=== PATIENT | female | born 1995 | race Caucasian/White ===

== ENCOUNTER 2016-03-23 14:27 | Emergency (ER) | payer OTHER ==
[2016-03-23 14:40] VITALS: BMI 43.5
[2016-03-23] MEDS ORDERED: SODIUM CHLORIDE 1,000 ML IV STA (15:41)
[2016-03-23] MEDS ORDERED: KETOROLAC TROMETHAMINE 30 MG/1 ML VIAL IVPUSH ONE (15:43)
[2016-03-23] MEDS ORDERED: KETOROLAC TROMETHAMINE 30 MG/1 ML VIAL ONE (15:45)
--- NOTE | 2016-03-23 15:50 | PDOC ---
Attending Attestation - Resident Resident Name: Ricco Feng - ED Attending Attestation I have performed the following: I have examined & evaluated the patient, The case was reviewed & discussed with the resident, I agree w/resident's findings & plan - HPI HPI: 03/23/16 15:47 21-year-old female with a negative past medical history She's had a few months of generalized "not feeling well", and for the past 2 weeks, she's had episodes of nausea vomiting, and some diarrhea This is associated with chest pain, crampy abdominal pain, fever, chills, myalgias, runny nose, and generalized malaise She denies any blood in the vomitus or diarrhea - Physicial Exam PE: 03/23/16 15:48 Physical exam Last Vital Signs Temp Pulse Resp BP Pulse Ox 99.6 F 113 H 20 139/108 97 03/23/16 14:33 03/23/16 14:33 03/23/16 14:33 03/23/16 14:33 03/23/16 14:33 GENERAL: The patient is awake, alert, and fully oriented, and in no apparent distress. HEAD: Normal with no signs of trauma. EYES: Sclera anicteric ENT: Throat is minimally erythematous NECK: Normal range of motion, supple LUNGS: Breath sounds equal, clear to auscultation bilaterally. No wheezes, and no crackles. HEART: Regular rate and rhythm, normal S1 and S2 without murmur, rub or gallop. ABDOMEN: Soft, nontender, normoactive bowel sounds. No guarding, no rebound. No masses appreciated. CHEST WALL: There is tenderness on the costochondral junctions to palpation, which reproduces the chest pain EXTREMITIES: Normal range of motion, no edema. No clubbing or cyanosis. No cords, erythema, or tenderness. NEUROLOGICAL: Cranial nerves II through XII grossly intact. Normal speech, normal gait. PSYCH: Normal mood, normal affect. SKIN: Warm, Dry, normal turgor, no rashes or lesions noted. - Medical Decision Making 03/23/16 15:49 Influenza-like illness, with associated gastroenteritis-type symptoms Will hydrate, check labwork, chest x-ray, and TSH, recheck blood pressure Patient is extremely anxious at this time 03/23/16 16:42 EKG Normal sinus rhythm 99, 0 axis Normal AV and IV conduction time Normal QTC Baseline artifact NSST-T's No change from prior EKH of 10/03/12 03/23/16 17:03 Laboratory Results - last 24 hr 03/23/16 03/23/16 03/23/16 16:00 16:00 16:00 WBC 13.6 H D RBC 4.63 Hgb 12.1 Hct 38.5 MCV 83.2 MCHC 31.4 L RDW 12.8 Plt Count 388 MPV 8.1 Neutrophils % 81.0 D Lymphocytes % 14.4 D Monocytes % 3.8 Eosinophils % 0.4 Basophils % 0.4 Sodium 142 Potassium 4.0 Chloride 106 Carbon Dioxide 27 Anion Gap 9 BUN 11 Creatinine 0.6 Creat Clearance w eGFR > 60 Random Glucose 99 Calcium 9.0 Total Bilirubin 0.6 AST 15 ALT 25 Alkaline Phosphatase 68 Creatine Kinase 48 Troponin I < 0.02 Total Protein 7.0 Albumin 3.5 Urine Color Urine Appearance Urine pH Ur Specific Branch Urine Protein Urine Glucose (UA) Urine Ketones Urine Blood Urine Nitrite Urine Bilirubin Urine Urobilinogen Ur Leukocyte Esterase 03/23/16 16:45 WBC RBC Hgb Hct MCV MCHC RDW Plt Count MPV Neutrophils % Lymphocytes % Monocytes % Eosinophils % Basophils % Sodium Potassium Chloride Carbon Dioxide Anion Gap BUN Creatinine Creat Clearance w eGFR Random Glucose Calcium Total Bilirubin AST ALT Alkaline Phosphatase Creatine Kinase Troponin I Total Protein Albumin Urine Color Yellow Urine Appearance Clear Urine pH 7.0 Ur Specific Branch 1.021 Urine Protein Negative Urine Glucose (UA) Negative Urine Ketones Negative Urine Blood Negative Urine Nitrite Negative Urine Bilirubin Negative Urine Urobilinogen 2.0 e.u/dl H Ur Leukocyte Esterase Negative CXR - NAD TSH - 2.25 Influenza A and B - neg Vital Signs (72 hours) 03/23/16 03/23/16 03/23/16 14:33 15:55 18:56 Temperature 99.6 F 98.6 F Pulse Rate 113 H Pulse Rate [ 78 Right] Respiratory 20 20 Rate Blood Pressure 139/108 Blood Pressure 118/68 [Right Arm] O2 Sat by Pulse 97 100 100 Oximetry (%) Feeling better after IV hydration and meds Impression - influenza like illness, atypical CP, gastroenteritis, anxiety Discharge Disposition - Diagnosis Influenza-like illness, Gastroenteritis, Atypical chest pain, Anxiety - Discharge Dispostion Disposition: HOME Condition at time of disposition: Improved - Prescriptions Prescriptions: Ibuprofen [Motrin -] 600 mg PO PRN PRN #21 tablet MDD 3 pills max PRN Reason: Pain Ondansetron [Zofran -] 4 mg PO DAILY #14 tablet MDD 2 tabs - Referrals Referrals: Arpit Steele MD [Staff Physician] - 1 week - Patient Instructions Additional Instructions: Followup with Dr Franklin for outpatient checkups & long-term management. - Post Discharge Activity
--- NOTE | 2016-03-23 16:13 | PDOC ---
History of Present Illness - General History Source: Patient Exam Limitations: No Limitations - History of Present Illness Initial Comments: 03/23/16 16:08 21 year old female with no PMH presents to ED with generalized chest pain & lethargy. States since March 08, she has had on and off bouts of sternal chest pain, not radiating to either side. She describes associated nausea and abdominal pain for the last 2 weeks as well. Several URI symptoms are also present including SOB, runny nose & sinus pain/headaches. In general, has not felt well for 2 months. Has not had her flu shot this year and has not seen a PCP in >1 year due to insurance issues. States she plans to start seeing a PCP as she just got insurance. Patient is very anxious and relates her symptoms exacerbating during periods of high stress. <Ricco Feng - Last Filed: 03/23/16 18:47> <Dalila Jacobs - Last Filed: 03/25/16 13:21> - General Chief Complaint: Pain Stated Complaint: CHEST PAIN, SOB, VOMITING, FEVER Time Seen by Provider: 03/23/16 15:14 Past History - Travel Traveled outside of the country in the last 30 days: No Close contact w/someone who was outside of country & ill: No - Past Medical History Other medical history: NONE - Surgical History Other Surgical History: Tonsillectomy - Family Disease History Family Disease History: Diabetes: Mother (Colon cancer in maternal uncle), Heart Disease: Mother, CA: Mother - Reproductive History LMP comment: LMP Early february, has been irregular for last year LMP Normal: No - Immunization History Immunization Up to Date: Yes - Psycho/Social/Smoking Cessation Hx Anxiety: No Suicidal Ideation: No Smoking Status: No Smoking History: Never smoked Have you smoked in the past 12 months: No Number of Cigarettes Smoked Daily: 0 Information on smoking cessation initiated: No Hx Alcohol Use: No Drug/Substance Use Hx: No Substance Use Type: None <Ricco Feng - Last Filed: 03/23/16 18:47> <Dalila Jacobs - Last Filed: 03/25/16 13:21> - Past Medical History Allergies/Adverse Reactions: Allergies Allergy/AdvReac Type Severity Reaction Status Date / Time No Known Allergies Allergy Verified 03/23/16 14:39 Home Medications: Ambulatory Orders Ibuprofen [Motrin -] 600 mg PO PRN PRN #21 tablet MDD 3 pills max 03/23/16 Ondansetron [Zofran -] 4 mg PO DAILY #14 tablet MDD 2 tabs 03/23/16 Review of Systems - Review of Systems Able to Perform ROS?: Yes Is the patient limited Luxembourger proficient: No Constitutional: Yes: Chills, Diaphoresis, Fever, Weakness HEENTM: Yes: Nose Congestion Respiratory: Yes: Cough, Shortness of Breath Cardiac (ROS): Yes: Chest Pain, Lightheadedness ABD/GI: Yes: Abdominal cramping Neurological: Yes: Headache Psychiatric: Yes: Anxiety <Ricco Feng - Last Filed: 03/23/16 18:47> *Physical Exam - Vital Signs Last Vital Signs Temp Pulse Resp BP Pulse Ox 99.6 F 113 H 20 139/108 97 03/23/16 14:33 03/23/16 14:33 03/23/16 14:33 03/23/16 14:33 03/23/16 14:33 - Physical Exam General Appearance: Yes: Appropriately Dressed, Obese HEENT: positive: EOMI, MUSHTAQ, Normal ENT Inspection, Pharynx Normal Neck: positive: Trachea midline, Supple Respiratory/Chest: positive: Lungs Clear, Normal Breath Sounds Cardiovascular: positive: Regular Rhythm, Regular Rate, S1, S2 Gastrointestinal/Abdominal: positive: Normal Bowel Sounds, Soft Musculoskeletal: positive: Normal Inspection Extremity: positive: Normal Inspection, Normal Range of Motion Integumentary: positive: Normal Color Neurologic: positive: manager erp II-XII NML intact, Fully Oriented, Alert, Normal Mood/ Affect, Normal Response, Motor Strength 5/5 <Ricco Feng - Last Filed: 03/23/16 18:47> - Vital Signs Last Vital Signs Temp Pulse Resp BP Pulse Ox 98.6 F 78 20 118/68 100 03/23/16 18:56 03/23/16 18:56 03/23/16 18:56 03/23/16 18:56 03/23/16 18:56 <Dalila Jacobs - Last Filed: 03/25/16 13:21> Heart Score/ECG Review - History History: Slightly suspicious - Electrocardiogram EKG: Normal - Age Age: </= 45 - Risk Factors Risk Factors Heart Score: Yes Positive family hx of cardiac disease, Yes Hx Obesity Based on the list above the patient has:: 1-2 risk factors - Troponin Troponin: </= normal limit - Score Heart Score - Total: 1 - ECG Intrepretation Rhythm: Regular Rhythm - [place]: Normal <Ricco Feng - Last Filed: 03/23/16 18:47> ED Treatment Course - LABORATORY CBC & Chemistry Diagram: 03/23/16 16:00 03/23/16 16:00 - ADDITIONAL ORDERS Additional order review: 03/23/16 16:18 Ordered cardiac profile, TSH, HCG, influenza swabs, UA/CBC/CMP. WBC mildly elevated at 13.6. Will hydrate. Possibly URI/Influenza, associated with GI illness. CXR will be ordered once test returns. 03/23/16 18:33 Mild leukocytosis but normal TSH, CMP, UA, Cardiac profile. Negative influenza. CXR shows no acute pathology. Patient will be referred to Dr Steele for outpatient followup & long-term management. - Medications Given in the ED: ED Medications Discontinued Medications Generic Name Dose Route Start Last Admin Trade Name Freq PRN Reason Stop Dose Admin Ketorolac Tromethamine 30 mg 03/23/16 15:43 03/23/16 16:01 Toradol Injection - IVPUSH 03/23/16 15:44 30 mg ONCE ONE Administration <Ricco Feng - Last Filed: 03/23/16 18:47> - LABORATORY CBC & Chemistry Diagram: 03/23/16 16:00 03/23/16 16:00 - ADDITIONAL ORDERS Additional order review: 03/23/16 16:00 Influenza Types A,B Antigen (ADIA) - Final Nasopharyngeal Swab - Final 03/23/16 16:00 RBC 4.63 MCV 83.2 MCHC 31.4 L RDW 12.8 MPV 8.1 Neutrophils % 81.0 D Lymphocytes % 14.4 D Monocytes % 3.8 Eosinophils % 0.4 Basophils % 0.4 - RADIOLOGY Radiology Studies Ordered: Category Date Time Status CHEST PA & LAT [RAD] Stat Radiology 03/23/16 17:03 Completed - Medications Given in the ED: ED Medications Discontinued Medications Generic Name Dose Route Start Last Admin Trade Name Freq PRN Reason Stop Dose Admin Acetaminophen 650 mg 03/23/16 18:11 03/23/16 18:35 Tylenol - PO 03/23/16 18:12 650 mg ONCE ONE Administration Sodium Chloride 1,000 mls @ 1,000 mls/hr 03/23/16 15:41 03/23/16 16:00 Normal Saline - IV 03/23/16 16:40 1,000 mls/hr ASDIR STA Administration Ketorolac Tromethamine 30 mg 03/23/16 15:43 03/23/16 16:01 Toradol Injection - IVPUSH 03/23/16 15:44 30 mg ONCE ONE Administration <Dalila Jacobs - Last Filed: 03/25/16 13:21> *DC/Admit/Observation/Transfer - Discharge Dispostion Admit: No <Ricco Feng - Last Filed: 03/23/16 18:47> <Dalila Jacobs - Last Filed: 03/25/16 13:21> Diagnosis at time of Disposition: Influenza-like illness, Gastroenteritis, Atypical chest pain, Anxiety - Discharge Dispostion Disposition: HOME Condition at time of disposition: Improved - Prescriptions Prescriptions: Ibuprofen [Motrin -] 600 mg PO PRN PRN #21 tablet MDD 3 pills max PRN Reason: Pain Ondansetron [Zofran -] 4 mg PO DAILY #14 tablet MDD 2 tabs - Referrals Referrals: Arpit Steele MD [Staff Physician] - 1 week - Patient Instructions Additional Instructions: Followup with Dr Franklin for outpatient checkups & long-term management.
[2016-03-23 16:15] LABS: BASOPHIL 0.4 % (0-2.0); EOSINOPHIL 0.4 % (0-4.5); MCH 26.1 pg (25.7-33.7); MCHC 31.4 g/dl (32.0-36.0); MEAN CELL VOLUME 83.2 fl (80-96); MEAN PLT VOLUME 8.1 fl (7.5-11.1); PLATELET COUNT 388 K/MM3 (134-434); RDW 12.8 % (11.6-15.6); WHITE BLOOD COUNT 13.6 K/mm3 (4.0-10.0)
[2016-03-23 16:41] LABS: ALBUMIN 3.5 g/dl (3.4-5.0); ANION GAP 9 (8-16); BILIRUBIN,TOTAL 0.6 mg/dL (0.2-1.0); CO2 27 mmol/L (21-32); CREATININE 0.6 mg/dL (0.55-1.02); GLUCOSE,RANDOM 99 mg/dL (74-106); SGOT/AST 15 U/L (15-37)
[2016-03-23 16:43] LABS: TROPONIN I < 0.02 ng/ml (0.00-0.05)
[2016-03-23 16:48] LABS: ALK PHOS 68 U/L (45-117); SGPT/ALT 25 U/L (12-78)
[2016-03-23 16:55] LABS: URINE APPEARANCE CLEAR; URINE BILIRUBIN NEGATIVE (NEGATIVE); URINE BLOOD NEGATIVE (NEGATIVE); URINE COLOR YELLOW; URINE GLUCOSE (UA) NEGATIVE (NEGATIVE); URINE KETONE NEGATIVE (NEGATIVE); URINE LEUK ESTERASE NEGATIVE (NEGATIVE); URINE NITRITE NEGATIVE (NEGATIVE); URINE PROTEIN NEGATIVE (NEGATIVE); URINE UROBILINOGEN 2.0 E.U/dl E.U./dl (0.2-1.0)
[2016-03-23 17:25] LABS: THYROID STIMULATING HORMONE 2.25 uIU/ml (0.358-3.74)
[2016-03-23] MEDS ORDERED: ACETAMINOPHEN 325 MG TABLET (FP) PO ONE (18:11)
[2016-03-23] MEDS ORDERED: ACETAMINOPHEN 325 MG TABLET (FP) ONE (18:34)
[2016-03-23 19:01] VITALS: BP 118/68; PULSE 78; TEMP 98.6
--- NOTE | 2016-03-24 09:26 | EKG ---
Test Reason : Blood Pressure : / mmHG Vent. Rate : 099 BPM Atrial Rate : 099 BPM P-R Int : 128 ms QRS Dur : 080 ms QT Int : 338 ms P-R-T Axes : 049 -02 040 degrees QTc Int : 433 ms POOR DATA QUALITY, INTERPRETATION MAY BE ADVERSELY AFFECTED NORMAL SINUS RHYTHM NONSPECIFIC T WAVE ABNORMALITY ABNORMAL ECG WHEN COMPARED WITH ECG OF 03-OCT-2012 20:32, NO SIGNIFICANT CHANGE WAS FOUND Confirmed by TYREL ROJAS MD ([id number]) on 03/24/2016 9:25:47 AM Referred By: Confirmed By:TYREL ROJAS MD
== END 2016-03-23 18:56 | disposition home or self-care (01) ==
LOC: JER 14:27
PROC: 3E0333Z Introduction of Anti-inflammatory into Peripheral Vein, Percutaneous Approach (ICD-10-PCS; principal; 2016-03-23)
DX: A08.4 Viral intestinal infection, unspecified (principal); B97.89 Other viral agents as the cause of diseases classified elsewhere
CPT/HCPCS: 36415; 71020-TC; 80053; 81003; 82550; 84443; 84484; 84703; 85025; 87804; 93005; 93010; 96374; 99285-25

== ENCOUNTER → 2016-07-16 | Emergency (ER) | payer OTHER ==
[2016-07-16 16:41] VITALS: BP 135/73; PULSE 90; TEMP 98.8; BMI 45.1
--- NOTE | 2016-07-16 17:03 | PDOC ---
[id number] LIGHTHEADED Time Seen by Provider: 07/16/16 16:55 History Source: Patient Exam Limitations: No Limitations - History of Present Illness Initial Comments: 07/16/16 17:06 21 yr female with on and off dizzyness, light headedness, nasal congestion since New years Day. Pt denies fever or chills states today she was driving and felt light headed so she came to ER. Pt has been seen by for same negative workup. Pt has no medical history or allergies, take no medications. non smoker denies drugs or alcohol. Pt has nasal congestion with some sinus tenderness. 07/16/16 17:11 07/16/16 18:13 Past History - Past Medical History Allergies/Adverse Reactions: Allergies Allergy/AdvReac Type Severity Reaction Status Date / Time No Known Allergies Allergy Verified 07/16/16 16:41 Home Medications: Ambulatory Orders NK [No Known Home Medication] 07/16/16 Other medical history: NONE - Family Disease History Family Disease History: Diabetes: Mother (Colon cancer in maternal uncle), Heart Disease: Mother, CA: Mother - Immunization History Immunization Up to Date: Yes - Psycho/Social/Smoking Cessation Hx Anxiety: No Suicidal Ideation: No Smoking Status: No Smoking History: Never smoked Have you smoked in the past 12 months: No Number of Cigarettes Smoked Daily: 0 Hx Alcohol Use: No Drug/Substance Use Hx: No Substance Use Type: None *Physical Exam - Vital Signs Last Vital Signs Temp Pulse Resp BP Pulse Ox 98.8 F 90 20 135/73 99 07/16/16 16:37 07/16/16 16:37 07/16/16 16:37 07/16/16 16:37 07/16/16 16:37 - Physical Exam General Appearance: Yes: Nourished, Appropriately Dressed, Obese HEENT: positive: EOMI, MUSHTAQ, TMs Normal, Pharynx Normal Neck: positive: Supple. negative: Tender Respiratory/Chest: positive: Lungs Clear, Normal Breath Sounds. negative: Chest Tender Cardiovascular: positive: Regular Rhythm, Regular Rate Gastrointestinal/Abdominal: positive: Normal Bowel Sounds, Soft. negative: Tender Musculoskeletal: positive: Normal Inspection Extremity: positive: Normal Capillary Refill, Normal Inspection, Normal Range of Motion Integumentary: positive: Normal Color, Dry, Warm Neurologic: positive: rewind operator II-XII NML intact, Fully Oriented, Alert, Normal Mood/ Affect, Normal Response, Motor Strength 5/5, Finger to Nose (intact). negative : Numbness, Sensory Deficit ED Treatment Course - LABORATORY CBC & Chemistry Diagram: 07/16/16 16:55 07/16/16 19:40 Medical Decision Making - Medical Decision Making 07/16/16 17:18 cc: headaches, nasal congestion, cold fingers "at times", feels hot flashes for months on and off denies anxiety or depression denies fever or chills, no foreign travel freight and passenger agent is non toxic stable vitals will r/o , labs 07/16/16 18:12 07/16/16 18:12 07/16/16 18:12 pt signed out to ALEXANDREA Naylor to follow labs. 07/21/16 17:14 07/21/16 17:14 *DC/Admit/Observation/Transfer Diagnosis at time of Disposition: Nasal congestion, Dizzinesses - Discharge Dispostion Disposition: HOME Condition at time of disposition: Stable - Referrals Referrals: Carlos Aldridge MD [Staff Physician] - Arpit Steele MD [Primary Care Provider] - Benji Del Castillo MD [Staff Physician] - Jt Corley MD [Staff Physician] - - Patient Instructions Printed Discharge Instructions: DI for Nasal Congestion, Dizziness, Nonvertigo Additional Instructions: Rest Follow up with your physician this week Return to the ER for severe/persistent or worsening symptoms
[2016-07-16 17:27] LABS: MCHC 32.7 g/dl (32.0-36.0); MEAN CELL VOLUME 82.5 fl (80-96); MEAN PLT VOLUME 8.5 fl (7.5-11.1); PLATELET COUNT 395 K/MM3 (134-434); RDW 13.5 % (11.6-15.6); WHITE BLOOD COUNT 10.4 K/mm3 (4.0-10.0)
[2016-07-16 20:18] LABS: ALBUMIN 3.8 g/dl (3.4-5.0); ALK PHOS 71 U/L (45-117); ANION GAP 9 (8-16); BILIRUBIN,TOTAL 0.4 mg/dL (0.2-1.0); CO2 27 mmol/L (21-32); COCKROFT - GAULT 194.9135; CREATININE 0.9 mg/dL (0.55-1.02); GLUCOSE,RANDOM 100 mg/dL (74-106); SGOT/AST 14 U/L (15-37); SGPT/ALT 21 U/L (12-78); TOT PROT 7.3 g/dl (6.4-8.2)
--- NOTE | 2016-07-16 21:37 | PDOC ---
History of Present Illness - General Chief Complaint: Lightheaded Stated Complaint: LIGHTHEADED Time Seen by Provider: 07/16/16 16:55 History Source: Patient - History of Present Illness Initial Comments: 07/16/16 21:32 21-year-old female found sitting comfortably on the stretcher in the emergency department complaining of nasal congestion/rhinorrhea and feeling exhausted since March. Patient states she has seen 2 physicians who advised her that she was fine. Patient denies any headache, dizziness, lightheadne at this time. Patient denies nausea/vomiting, fever/chills/diarrhea, chest pain, shortness of breath, abdominal pains, extremity numbness or tingling sensation. Patient states she feels better since arriving to the emergency department. Patient is requesting for a referral to a medical physician, neurologist and sap crm developer. Patient states she feels better than she did several weeks ago but decided to come here because her PMD states "they don't know what is wrong" with her. Past History - Past Medical History Allergies/Adverse Reactions: Allergies Allergy/AdvReac Type Severity Reaction Status Date / Time No Known Allergies Allergy Verified 07/16/16 16:41 Home Medications: Ambulatory Orders NK [No Known Home Medication] 07/16/16 Other medical history: NONE - Family Disease History Family Disease History: Diabetes: Mother (Colon cancer in maternal uncle), Heart Disease: Mother, CA: Mother - Immunization History Immunization Up to Date: Yes - Psycho/Social/Smoking Cessation Hx Anxiety: No Suicidal Ideation: No Smoking Status: No Smoking History: Never smoked Have you smoked in the past 12 months: No Number of Cigarettes Smoked Daily: 0 Hx Alcohol Use: No Drug/Substance Use Hx: No Substance Use Type: None *Physical Exam - Vital Signs Last Vital Signs Temp Pulse Resp BP Pulse Ox 98.8 F 90 20 135/73 99 07/16/16 16:37 07/16/16 16:37 07/16/16 16:37 07/16/16 16:37 07/16/16 16:37 - Physical Exam Comments: 07/16/16 21:34 GENERAL: Well developed, well nourished. Awake and alert. No acute distress. HEENT: Normocephalic, atraumatic. PERRLA, EOMI. No conjunctival pallor. Sclera are non- icteric. Moist mucous membranes. Oropharynx is clear. NECK: Supple. Full ROM. No JVD. Carotid pulses 2+ and symmetric, without bruits. No thyromegaly. No lymphadenopathy. CARDIOVASCULAR: Regular rate and rhythm. No murmurs, rubs, or gallops. Distal pulses are 2+ and symmetric. PULMONARY: No evidence of respiratory distress. Lungs clear to auscultation bilaterally. No wheezing, rales or rhonchi. ABDOMINAL: Soft. Non-tender. Non-distended. No rebound or guarding. No organomegaly. Normoactive bowel sounds. MUSCULOSKELETAL Normal range of motion at all joints. No bony deformities or tenderness. No CVA tenderness. EXTREMITIES: No cyanosis. No clubbing. No edema. No calf tenderness. SKIN: Warm and dry. Normal capillary refill. No rashes. No jaundice. NEUROLOGICAL: Alert, awake, appropriate. Cranial nerves 2-12 intact. No deficits to light touch and temperature in face, upper extremities and lower extremities. No motor deficits in the in face, upper extremities and lower extremities. Normoreflexic in the upper and lower extremities. Normal speech. Toes are down- going bilaterally. Gait is normal without ataxia. PSYCHIATRIC: Cooperative. Good eye contact. Appropriate mood and affect. Toe/heel/tandem walk intact. Negative Romberg. Negative pronator drift ED Treatment Course - LABORATORY CBC & Chemistry Diagram: 07/16/16 16:55 07/16/16 19:40 - ADDITIONAL ORDERS Additional order review: Laboratory Results 07/16/16 19:40 Sodium 141 Potassium 3.7 Chloride 105 Carbon Dioxide 27 Anion Gap 9 BUN 12 Creatinine 0.9 D Creat Clearance w eGFR > 60 Random Glucose 100 Calcium 9.0 Total Bilirubin 0.4 D AST 14 L ALT 21 Alkaline Phosphatase 71 Total Protein 7.3 Albumin 3.8 07/16/16 16:55 RBC 4.43 MCV 82.5 MCHC 32.7 RDW 13.5 MPV 8.5 *DC/Admit/Observation/Transfer Diagnosis at time of Disposition: Nasal congestion, Dizzinesses - Discharge Dispostion Disposition: HOME Condition at time of disposition: Stable Admit: No - Referrals Referrals: Arpit Steele MD [Primary Care Provider] - Carlos Aldridge MD [Staff Physician] - Benji Del Castillo MD [Staff Physician] - Jt Corley MD [Staff Physician] - - Patient Instructions Printed Discharge Instructions: DI for Nasal Congestion, Dizziness, Nonvertigo Additional Instructions: Rest Follow up with your physician this week Return to the ER for severe/persistent or worsening symptoms
== END | disposition home or self-care (01) ==
LOC: JER 16:32
DX: R42 Dizziness and giddiness (principal)
CPT/HCPCS: 36415; 80053; 85027; 99282-25

== ENCOUNTER 2017-07-14 16:39 | Emergency (ER) | payer OTHER ==
[2017-07-14 16:49] VITALS: BP 119/76; PULSE 91; TEMP 98.1; BMI 42.7
--- NOTE | 2017-07-14 16:49 | PDOC ---
Rapid Medical Evaluation Time Seen by Provider: 07/14/17 16:45 Medical Evaluation: Allergies Allergy/AdvReac Type Severity Reaction Status Date / Time No Known Allergies Allergy Verified 07/14/17 16:44 07/14/17 16:47 I have performed a brief in-person evaluation of this patient. The patient presents with a chief complaint of: CP, b/l leg swelling and body aches and weakness x days. H/o RODRÍGUEZ x 1 year, has not been seen by neurologist and no imaging in past Pertinent physical exam findings:Stable and well eddie w/ clear chest/lungs I have ordered the following:ekg/labs The patient will proceed to the ED for further evaluation. 07/14/17 16:51 Discharge Disposition - Diagnosis Chest pain Qualifiers: Chest pain type: unspecified Qualified Code(s): R07.9 - Chest pain, unspecified - Referrals - Patient Instructions - Post Discharge Activity
[2017-07-14 18:21] LABS: HEMATOCRIT 36.4 % (32.4-45.2); HEMOGLOBIN 12.5 GM/dL (10.7-15.3); LYMPH % 30.2 % (8-40); MCH 28.8 pg (25.7-33.7); MCHC 34.3 g/dl (32.0-36.0); MEAN CELL VOLUME 83.9 fl (80-96); MEAN PLT VOLUME 8.6 fl (7.5-11.1); MONO % 6.7 % (3.8-10.2); NEUT % 61.1 % (42.8-82.8); PLATELET COUNT 351 K/MM3 (134-434); RBC 4.34 M/mm3 (3.60-5.2); RDW 13.2 % (11.6-15.6); WHITE BLOOD COUNT 9.9 K/mm3 (4.0-10.0)
[2017-07-14 18:44] LABS: ALBUMIN 4.1 g/dl (3.4-5.0); ANION GAP 7 (8-16); BILIRUBIN,TOTAL 0.8 mg/dL (0.2-1.0); BLOOD UREA NITROGEN 11 mg/dL (7-18); CALCIUM 9.2 mg/dL (8.5-10.1); CHLORIDE 104 mmol/L (98-107); CO2 28 mmol/L (21-32); CREATININE 0.6 mg/dL (0.55-1.02); GLUCOSE,RANDOM 79 mg/dL (74-106); SGOT/AST 12 U/L (15-37); SGPT/ALT 18 U/L (12-78); SODIUM 139 mmol/L (136-145); TOT PROT 7.5 g/dl (6.4-8.2)
--- NOTE | 2017-07-14 18:44 | PDOC ---
History of Present Illness - General Chief Complaint: Chest Pain Stated Complaint: CHEST PAIN Time Seen by Provider: 07/14/17 16:45 - History of Present Illness Initial Comments: 22-year-old female 22-year-old female pain and right leg swelling 2 weeks she describes her plain as pleuritic exacerbated with deep breathing relieved with rest no radiation of symptoms. She has not sought any medical treatment for this. She denies headache nausea or vomiting. She is otherwise healthy. 07/14/17 18:41 Past History - Past Medical History Allergies/Adverse Reactions: Allergies Allergy/AdvReac Type Severity Reaction Status Date / Time No Known Allergies Allergy Verified 07/14/17 16:44 Home Medications: Ambulatory Orders NK [No Known Home Medication] 07/16/16 COPD: No DVT: No - Family Disease History Family Disease History: Diabetes: Mother (Colon cancer in maternal uncle), Heart Disease: Mother, CA: Mother - Immunization History Immunization Up to Date: Yes - Suicide/Smoking/Psychosocial Hx Smoking Status: No Smoking History: Never smoked Have you smoked in the past 12 months: No Number of Cigarettes Smoked Daily: 0 Information on smoking cessation initiated: No Hx Alcohol Use: No Drug/Substance Use Hx: No Substance Use Type: None Review of Systems - Review of Systems Is the patient limited Korean proficient: No Constitutional: Yes: See HPI, Malaise. No: Fever, Night Sweats, Weakness HEENTM: No: Blurred Vision, Throat Swelling, Mouth Pain Respiratory: No: Cough, Orthopnea, Shortness of Breath, SOB with Exertion, SOB at Rest, Stridor, Wheezing, Productive cough, Hemoptysis Cardiac (ROS): Yes: Chest Pain, Chest Tightness ABD/GI: No: Diarrhea, Nausea, Vomiting : No: Burning, Dysuria Musculoskeletal: No: Back Pain Integumentary: No: Lesions Neurological: No: Headache, Numbness, Paresthesia Psychiatric: No: Anxiety, Depression All Other Systems: Reviewed and Negative *Physical Exam - Vital Signs Last Vital Signs Temp Pulse Resp BP Pulse Ox 98.1 F 91 H 18 119/76 100 07/14/17 16:46 07/14/17 16:46 07/14/17 16:46 07/14/17 16:46 07/14/17 16:46 - Physical Exam Comments: General Appearance: Well-developed, well-nourished A&O 3 NAD Head: NC/AT Ears: External auditory canals are normal and clear; tympanic membranes are normal; hearing is grossly intact Nose: Normal no discharge Throat and Oral cavity: Pharynx is clear without inflammation swelling exudate no lesions teeth and gingiva are normal Neck: Supple nontender without lymphadenopathy masses or thyromegaly Cardiac: S1 and S2 without murmurs no peripheral edema cyanosis or pallor; extremities are warm and well-perfused; capillary refill is less than 2 seconds without carotid bruits Lungs: CTA and Percussion no rales or rhonchi or wheezing breath sounds are full bilaterally Abdomen: Positive bowel sounds; soft nondistended, nontender, no guarding or rebound tenderness; no masses Musculoskeletal; Adequately aligned spine range of motion intact to spine and extremities Neurologic: Cranial nerves II-XII are grossly intact strength and sensation are symmetric and intact cerebellar testing is negative Skin: Normal color and temperature normal texture turgor no lesions or eruptions 07/14/17 18:43 ED Treatment Course - LABORATORY CBC & Chemistry Diagram: 07/14/17 17:18 07/14/17 17:18 - ADDITIONAL ORDERS Additional order review: Laboratory Results 07/14/17 07/14/17 18:12 17:18 D-Dimer < 200 Urine HCG, Qual Negative 07/14/17 17:18 RBC 4.34 MCV 83.9 MCHC 34.3 RDW 13.2 MPV 8.6 Neutrophils % 61.1 D Lymphocytes % 30.2 D Monocytes % 6.7 Eosinophils % 1.0 D Basophils % 1.0 - RADIOLOGY Radiology Studies Ordered: Category Date Time Status DUPLEX VASCUL US-2LEGS [US] Stat Ultrasound 07/14/17 18:37 Ordered Medical Decision Making - Medical Decision Making Her emergency room visit has been uneventful her blood work and urine is negative. She has a benign exam. Differential includes viral syndrome versus neurologic versus costochondritis follow-up with primary care physician in one day return to emergency room if symptoms worsen or go unresolved. Given light of negative troponins negative d-dimer and symptoms for the last 2 weeks without change or worsening believe it safe to discharge her home at this point 07/14/17 19:56 *DC/Admit/Observation/Transfer Diagnosis at time of Disposition: Chest pain Qualifiers: Chest pain type: unspecified Qualified Code(s): R07.9 - Chest pain, unspecified - Discharge Dispostion Disposition: HOME Condition at time of disposition: Stable Decision to Admit order: No - Referrals Referrals: Kiara Carpenter MD [Staff Physician] - Mark Kelly MD [Staff Physician] - - Patient Instructions Additional Instructions: Return to the emergency room if symptoms worsen or go unresolved prior to discharge tomorrow or emergency room was negative - Post Discharge Activity
[2017-07-14 18:45] LABS: ALK PHOS 65 U/L (45-117)
[2017-07-14 19:25] LABS: URINE APPEARANCE SLCLOUDY; URINE BILIRUBIN NEGATIVE (<2.0 mg/dL); URINE COLOR YELLOW; URINE GLUCOSE (UA) NEGATIVE (NEGATIVE); URINE KETONE NEGATIVE (NEGATIVE); URINE LEUK ESTERASE NEGATIVE (NEGATIVE); URINE NITRITE NEGATIVE (NEGATIVE); URINE PROTEIN NEGATIVE (NEGATIVE); URINE UROBILINOGEN NEGATIVE mg/dL (0.2-1.0)
--- NOTE | 2017-07-15 10:39 | EKG ---
Test Reason : Blood Pressure : / mmHG Vent. Rate : 087 BPM Atrial Rate : 087 BPM P-R Int : 128 ms QRS Dur : 084 ms QT Int : 368 ms P-R-T Axes : 046 005 040 degrees QTc Int : 442 ms NORMAL SINUS RHYTHM NORMAL ECG WHEN COMPARED WITH ECG OF 23-MAR-2016 14:36, NO SIGNIFICANT CHANGE WAS FOUND Confirmed by ROSIBEL ALVAREZ MD ([id number]) on 07/15/2017 10:38:59 AM Referred By: Confirmed By:ROSIBEL ALVAREZ MD
== END 2017-07-14 20:15 | disposition home or self-care (01) ==
LOC: JERFT 16:39 → JER 16:39 → JERFT 20:15
DX: R07.89 Other chest pain (principal)
CPT/HCPCS: 36415; 80053; 81003; 82550; 84484; 84703; 85025; 85379; 93005; 93010; 93970-TC; 99281-25

== ENCOUNTER 2018-03-15 16:10 | Emergency (ER) | payer SELFPAY ==
[2018-03-15 16:34] VITALS: TEMP 98.4; BMI 43.5
[2018-03-15] MEDS ORDERED: ACETAMINOPHEN 325 MG TABLET (FP) PO ONE (16:34)
--- NOTE | 2018-03-15 16:34 | PDOC ---
Rapid Medical Evaluation Time Seen by Provider: 03/15/18 16:31 Medical Evaluation: Allergies Allergy/AdvReac Type Severity Reaction Status Date / Time No Known Allergies Allergy Verified 03/08/18 17:38 03/15/18 16:31 I have done a brief in-person assessment of this patient. The patient presents with a chief complaint of headache x 6 days. G1, 10 weeks with headache and nausea, denies dizziness Pertinent physical exam findings NAD HEENT: PERRLA, right eye with small swelling unlabored breathing neuro: moving all limbs, a + o x 3 I have ordered the following: analgesia The patient will proceed to the Ed for further evaluation. 03/15/18 21:41 Dx: headache Discharge Disposition - Diagnosis Abdominal pain affecting , Eye pain - Discharge Dispostion Condition at time of disposition: Stable - Referrals Referrals: Arpit Steele MD [Primary Care Provider] - Yamile Saavedra MD [Staff Physician] - - Patient Instructions Printed Discharge Instructions: DI for Abdominal Pain -- Early Additional Instructions: Please return to the emergency department with any new or worsening symptoms or concerns. Please follow up with your primary care physician within 72 hours. Please follow up with Weaving Teacher within one week. - Post Discharge Activity
[2018-03-15] MEDS ORDERED: ACETAMINOPHEN 325 MG TABLET (FP) ONE (16:36)
--- NOTE | 2018-03-15 19:55 | PDOC ---
Attending Attestation - Resident Resident Name: Hi Thompson - ED Attending Attestation I have performed the following: I have examined & evaluated the patient, The case was reviewed & discussed with the resident, I agree w/resident's findings & plan, Exceptions are as noted - HPI HPI: 03/15/18 19:55 23 yo female p/w 6 days of cough, nasal congestion, mild frontal headache She was seen for URI symptoms last week. . She is 03/16/18 00:50 - Physicial Exam PE: 03/16/18 17:20 23 YO female with URI symptoms head ncat neck supple nares +rhinorrhea eyes lexi eomi lungs cta b/l cvs [id number] abd no rebound,no guarding ext no edema skin warm and dry neuro axox3,ambulatory,no focal neuro deficits 03/16/18 17:25 - Medical Decision Making 03/16/18 17:27 8 weeks 5 days, FHT 171 pt tx for URI symptoms and d/c home with auto overhauler follow up
--- NOTE | 2018-03-15 20:23 | PDOC ---
History of Present Illness - General Chief Complaint: Headache Stated Complaint: MIGRAINE Time Seen by Provider: 03/15/18 16:31 - History of Present Illness Initial Comments: 03/15/18 20:17 23 yo , LMP (01/11/18), at 7 wga confirmed by home test, h/o anxiety, obesity, who p/w right eye pain. Patient reports improved right retrorbital eye pain, and intermittent right eye blurry vision with no identifiable triggers or alleviators x 2 weeks. Reports mild swelling and redness of right eye, now improved. R eye pain worse with coughing, eye movement , and touch. Endorses recent recovery from URI type illness, rhinorrhea, lacrimation, and sinus pain. Also endorses 3 days of crampy, intermittent lower abdominal pain, resolving spontaneously after seconds. No identifiable triggers or alleviators. Patient takes Tylenol for eye pain with minimal to no improvement. Recently evaluated at [facility] ED Patient denies Neck stiffness, hearing loss, tinnitus, eye discharge, N/V, F/C, CP, SOB, urinary complaints, BPR, hematuria, diarrhea, constipation, lightheadedness, weakness, sensory changes. PMHx: as noted above. Denies abdominal surgery ROS: as noted SHx: Denies Etoh, IVDA, tobacco use Allergies: NKDA Past History - Past Medical History Allergies/Adverse Reactions: Allergies Allergy/AdvReac Type Severity Reaction Status Date / Time No Known Allergies Allergy Verified 03/08/18 17:38 Home Medications: Ambulatory Orders Prenat Vit 17/Iron/Folic/Om3,6 [Elite-Ob 400 Capsule] 1 each PO DAILY #30 capsule 03/15/18 Oxymetazoline HCl [Nasal [place] Sinus] 30 ml NS PRN PRN #1 spray 03/16/18 COPD: No DVT: No - Family Disease History Family Disease History: Diabetes: Mother (Colon cancer in maternal uncle), Heart Disease: Mother, CA: Mother - Immunization History Immunization Up to Date: Yes - Suicide/Smoking/Psychosocial Hx Smoking Status: No Smoking History: Never smoked Have you smoked in the past 12 months: No Number of Cigarettes Smoked Daily: 0 Information on smoking cessation initiated: No Hx Alcohol Use: No Drug/Substance Use Hx: No Substance Use Type: None Review of Systems - Review of Systems Comments:: 03/15/18 20:23 GENERAL/CONSTITUTIONAL: No fever or chills. No weakness. HEAD, EYES, EARS, NOSE AND THROAT: + R eye pain. + headache. No ear pain or discharge. No sore throat. CARDIOVASCULAR: No chest pain or shortness of breath RESPIRATORY: No cough, wheezing, or hemoptysis. GASTROINTESTINAL: + lower abdominal pain. No nausea, vomiting, diarrhea or constipation. GENITOURINARY: No dysuria, frequency, or change in urination. MUSCULOSKELETAL: No joint or muscle swelling or pain. No neck or back pain. SKIN: No rash NEUROLOGIC: No vertigo, loss of consciousness, or change in strength/sensation. ENDOCRINE: No increased thirst. No abnormal weight change HEMATOLOGIC/LYMPHATIC: No anemia, easy bleeding, or history of blood clots. ALLERGIC/IMMUNOLOGIC: No hives or skin allergy. *Physical Exam - Vital Signs Last Vital Signs Temp Pulse Resp BP Pulse Ox 98.4 F 91 H 18 143/76 98 03/15/18 16:31 03/15/18 16:31 03/15/18 16:31 03/15/18 16:31 03/15/18 16:31 - Physical Exam Comments: 03/15/18 20:24 GENERAL: Awake, alert, and fully oriented, in no acute distress HEAD: No signs of trauma, normocephalic, atraumatic EYES: Vision OU 20/30, PERRLA, EOMI, sclera anicteric, conjunctiva clear, peripheral knight intact. Fundoscopic wnl. ENT:Hearing grossly normal, nares patent, oropharynx clear without exudates. Moist mucosa NECK: Normal ROM, supple, no lymphadenopathy, JVD, or masses LUNGS: No distress, speaks full sentences, clear to auscultation bilaterally HEART: Regular rate and rhythm, normal S1 and S2, no murmurs, rubs or gallops, peripheral pulses normal and equal bilaterally. ABDOMEN: + lower abdominal ttp. Soft, NDS, normoactive bowel sounds. No guarding, no rebound. No masses. Neg CVA ttp. Neg Mcburney ttp, or Alas sign. GENITORUINARY: Nml appearing external genitalia, absent blood in vaginal vault. Absent lesions. Cervical os closed. Neg CMT on BM. Neg adenexal tenderness. Chaperoned by Dr. Serrato. EXTREMITIES : Normal inspection, Normal range of motion, no edema. No clubbing or cyanosis. NEUROLOGICAL: Cranial nerves II through XII grossly intact. Normal speech, normal gait, no focal sensorimotor deficits. Neg dysmetria on FTN SKIN: Warm, Dry, normal turgor, no rashes or lesions noted Moderate Sedation - Procedure Monitoring Vital Signs: Procedure Monitoring Vital Signs Temperature 98.4 F 03/15/18 16:31 Pulse Rate 91 H 03/15/18 16:31 Respiratory Rate 18 03/15/18 16:31 Blood Pressure 143/76 03/15/18 16:31 O2 Sat by Pulse Oximetry (%) 98 03/15/18 16:31 ED Treatment Course - LABORATORY CBC & Chemistry Diagram: 03/15/18 20:28 03/15/18 20:28 - Medications Given in the ED: ED Medications Discontinued Medications Generic Name Dose Route Start Last Admin Trade Name Freq PRN Reason Stop Dose Admin Acetaminophen 650 mg 03/15/18 16:34 03/15/18 16:38 Tylenol - PO 03/15/18 16:35 650 mg ONCE ONE Administration Medical Decision Making - Medical Decision Making 03/15/18 20:32 89 yo , LMP (01/11/18), at 7 wga confirmed by home test, h/o anxiety, obesity, who p/w right eye pain, RODRÍGUEZ, and 3 days lower abdominal pain.vitals wnl, AF, A&Ox3. + lower abdominal ttp, exam unremarkable. Will assess for viable IUP vs. cause of abdominal pain in . Will consider ectopic , threatened , ovarian pathology/torsion. Will also consider cystitis. Low suspicion appendicitis, colitis, pyelonephritis. Patient also with right sided retroorbital pain, + R sided maxillary ttp, vision OU 20/ 30, PERRLA, EOMI, sclera anicteric, conjunctiva clear, peripheral knight intact. Possible sinusitis/viral, conjunctivitis. Neurologically intact. Absent nuchal rigidity. Low suspicion corneal abrasion, optic neuritis, papilledema, retinal detachement, vitreous hemorrhage, pseudtumor cerebri, meningitis, SAH, hematoma. ED Course: CBC,CMP,HCG UA,UCX TVUS 03/15/18 21:07 WBC: 12.8 CMP: Unremarkable 03/15/18 22:13 TVUS: Single live IUP 8w5d, HR 171, left ovarian cyst 2 x 2 x 1.5 03/15/18 23:04 meds sent to pharmacy. 03/15/18 23:58 Patient stable for d/c with return precautions. Advised to f/u programming director. *DC/Admit/Observation/Transfer Diagnosis at time of Disposition: Abdominal pain affecting , Common cold, Nasal congestion Eye pain Qualifiers: Laterality: right Qualified Code(s): H57.11 - Ocular pain, right eye - Discharge Dispostion Disposition: HOME Condition at time of disposition: Stable - Prescriptions Prescriptions: Oxymetazoline HCl [Nasal [place] Sinus] 30 ml NS PRN PRN #1 spray PRN Reason: Pain Prenat Vit 17/Iron/Folic/Om3,6 [Elite-Ob 400 Capsule] 1 each PO DAILY #30 capsule - Referrals Referrals: Arpit Steele MD [Primary Care Provider] - Yamile Saavedra MD [Staff Physician] - Broderick Zimmerman MD [Staff Physician] - - Patient Instructions Printed Discharge Instructions: DI for Abdominal Pain -- Early , DI for Nasal Congestion Additional Instructions: Please return to the emergency department with any new or worsening symptoms or concerns. Please follow up with your primary care physician within 72 hours. Please follow up with Zipper Ironer within one week. Please follow up with the eye doctor - Post Discharge Activity - Attestations Physician Attestion: 03/15/18 20:42 I attest to the information provided in this note.
[2018-03-15 20:58] LABS: BASO % 0.8 % (0-2.0); EOS % 1.5 % (0-4.5); HEMATOCRIT 35.2 % (32.4-45.2); HEMOGLOBIN 12.2 GM/dL (10.7-15.3); LYMPH % 20.3 % (8-40); MCH 28.6 pg (25.7-33.7); MCHC 34.6 g/dl (32.0-36.0); MEAN CELL VOLUME 82.4 fl (80-96); MEAN PLT VOLUME 8.4 fl (7.5-11.1); MONO % 6.6 % (3.8-10.2); NEUT % 70.8 % (42.8-82.8); PLATELET COUNT 359 K/MM3 (134-434); RBC 4.27 M/mm3 (3.60-5.2); RDW 13.4 % (11.6-15.6); WHITE BLOOD COUNT 12.8 K/mm3 (4.0-10.0)
[2018-03-15 22:03] LABS: ALBUMIN 3.6 g/dl (3.4-5.0); ALK PHOS 59 U/L (45-117); ANION GAP 10 MMOL/L (8-16); BILIRUBIN,TOTAL 0.6 mg/dL (0.2-1); BLOOD UREA NITROGEN 12 mg/dL (7-18); CALCIUM 9.2 mg/dL (8.5-10.1); CHLORIDE 104 mmol/L (98-107); CO2 21 mmol/L (21-32); CREATININE 0.4 mg/dL (0.55-1.3); GLUCOSE,RANDOM 79 mg/dL (74-106); SGOT/AST 19 U/L (15-37); SGPT/ALT 23 U/L (13-61); SODIUM 136 mmol/L (136-145); TOT PROT 7.2 g/dl (6.4-8.2)
[2018-03-16 00:55] VITALS: BP 137/82; PULSE 88
== END 2018-03-16 01:06 | disposition home or self-care (01) ==
LOC: JER 16:10
DX: O26.891 Other specified pregnancy related conditions, first trimester (principal); Z3A.09 9 weeks gestation of pregnancy; R10.9 Unspecified abdominal pain; J00 Acute nasopharyngitis [common cold]; R09.81 Nasal congestion
CPT/HCPCS: 36415; 76801-TC; 80053; 84702; 85025; 86850; 86900; 86901; 99281-25

== ENCOUNTER 2020-01-17 04:20 | Day surgery (SDC) | payer OTHER ==
[2020-01-16 17:51] VITALS: BMI 43.5
[2020-01-17] MEDS ORDERED: PROPOFOL 20 ML ONE ×2 (11:40)
[2020-01-17] MEDS ORDERED: ceFAZolin SODIUM 1 GM VIAL ONE (11:40)
[2020-01-17] MEDS ORDERED: LIDOCAINE HCL/PF 2% SDV 5ML VIAL ONE (11:40)
[2020-01-17] MEDS ORDERED: MIDAZOLAM HCL 2 MG/2 ML SINGLE DOSE VIAL ONE (11:40)
[2020-01-17] MEDS ORDERED: ceFAZolin SODIUM 1 GM VIAL IVPB ONE (11:55)
[2020-01-17] MEDS ORDERED: LIDOCAINE 1%/EPI 1:100000 (20 ML MULTI DOSE VIAL) IJ ONE (12:05)
[2020-01-17] MEDS ORDERED: DEXAMETHASONE SOD PHOSPHATE 4 MG/1 ML VIAL ONE (12:13)
[2020-01-17] MEDS ORDERED: ONDANSETRON 4 MG/2 ML VIAL IVPUSH PRN (12:34)
[2020-01-17] MEDS ORDERED: IBUPROFEN 800 MG/8 ML IJ IVPB PRN (12:34)
[2020-01-17] MEDS ORDERED: oxyCODONE HCL 5 MG TABLET PO PRN (12:34)
[2020-01-17] MEDS ORDERED: LACTATED RINGERS SOLUTION 1,000 ML IV SCH (12:45)
[2020-01-17] MEDS ORDERED: oxyCODONE HCL 5 MG TABLET ONE (14:54)
[2020-01-17] MEDS ORDERED: ELECTROLYTE-148 SOLN 1,000 ML IV SCH (15:15)
[2020-01-17 15:59] VITALS: TEMP 97.8
[2020-01-17 18:35] VITALS: PULSE 80
[2020-01-17 18:40] VITALS: BP 120/62
== END 2020-01-17 18:41 | disposition home or self-care (01) ==
LOC: JASU-SURG 04:20
PROVIDERS: ATTEND Urology
PROC: 0TSD0ZZ Reposition Urethra, Open Approach (ICD-10-PCS; principal; 2020-01-17 10:30)
DX: N39.3 Stress incontinence (female) (male) (principal); E66.01 Morbid (severe) obesity due to excess calories; Z68.41 Body mass index [BMI] 40.0-44.9, adult
CPT/HCPCS: 57288; C1771; 84703; 88302-TC; 94760

== ENCOUNTER 2021-02-26 05:13 | Day surgery (SDC) | payer OTHER ==
[2021-02-22 14:57] VITALS: BMI 44.0
[~2021-02-26 05:13] MED LIST: BUPIVACAINE HCL/PF 0.75% 10 ML VIAL NR ONE; IOHEXOL 180 MG/1 ML ML IJ ONE
[2021-02-26] MEDS ORDERED: LIDOCAINE HCL 1% PRESERVATIVE FREE - 30ML VIAL IJ ONE ×2 (11:05)
[2021-02-26] MEDS ORDERED: IOHEXOL 180 MG/1 ML ML IJ ONE (11:07)
[2021-02-26] MEDS ORDERED: BUPIVACAINE HCL/PF 0.75% 10 ML VIAL NR ONE (11:10)
[2021-02-26 11:38] VITALS: BP 111/55; PULSE 76; TEMP 98.7
== END 2021-02-26 12:50 | disposition home or self-care (01) ==
LOC: JASU-SURG 05:13
PROVIDERS: ATTEND Pain Medicine Pain Medicine
PROC: 3E0T33Z Introduction of Anti-inflammatory into Peripheral Nerves and Plexi, Percutaneous Approach (ICD-10-PCS; 2021-02-26)
PROC: 3E0T3BZ Introduction of Anesthetic Agent into Peripheral Nerves and Plexi, Percutaneous Approach (ICD-10-PCS; principal; 2021-02-26 11:00)
DX: M47.816 Spondylosis without myelopathy or radiculopathy, lumbar region (principal)
CPT/HCPCS: 76000-TC-FY; 81025

== ENCOUNTER 2021-03-22 04:17 | Day surgery (SDC) | payer OTHER ==
[2021-03-21 09:04] VITALS: BMI 44.0
[2021-03-22] MEDS ORDERED: LIDOCAINE HCL/PF 1% SDV 5ML VIAL ONE (07:31)
[2021-03-22] MEDS ORDERED: BUPIVACAINE HCL/PF 0.75% 10 ML VIAL ONE (07:31)
== END 2021-03-22 14:40 | disposition home or self-care (01) ==
LOC: JASU-SURG 04:17
PROVIDERS: ATTEND Pain Medicine Pain Medicine
DX: Z53.8 Procedure and treatment not carried out for other reasons (principal)
CPT/HCPCS: 81025

== ENCOUNTER 2021-07-03 13:02 | Emergency (ER) | payer OTHER ==
[2021-07-03 13:12] VITALS: BP 114/70; PULSE 91; TEMP 98.6; BMI 41.9
[2021-07-03] MEDS ORDERED: ONDANSETRON 4 MG/2 ML VIAL IVPUSH ONE (15:06)
[2021-07-03] MEDS ORDERED: SODIUM CHLORIDE 0.9% 500 ML INFUS.BAG IV ONE (15:07)
[2021-07-03] MEDS ORDERED: ONDANSETRON 4 MG/2 ML VIAL ONE (16:48)
[2021-07-03 17:06] LABS: BASO % 0.6 % (0-2.0); EOS % 1.9 % (0-4.5); HEMATOCRIT 36.8 % (32.4-45.2); HEMOGLOBIN 12.1 GM/dL (10.7-15.3); LYMPH % 24.1 % (8-40); MCH 26.9 pg (25.7-33.7); MCHC 32.8 g/dl (32.0-36.0); MEAN CELL VOLUME 82.2 fl (80-96); MEAN PLT VOLUME 8.6 fl (7.5-11.1); MONO % 5.7 % (3.8-10.2); NEUT % 67.7 % (42.8-82.8); PLATELET COUNT 365 10^3/uL (134-434); RBC 4.48 M/mm3 (3.60-5.2); RDW 13.4 % (11.6-15.6); WHITE BLOOD COUNT 8.9 K/mm3 (4.0-10.0)
[2021-07-03 17:13] LABS: INR 1.15 (0.83-1.09); PROTHROMBIN TIME (PATIENT) 13.2 SEC (9.7-13.0)
[2021-07-03 17:25] LABS: CHLORIDE 107 mmol/L (98-107); SODIUM 140 mmol/L (136-145)
[2021-07-03 17:28] LABS: ANION GAP 6 MMOL/L (8-16); CALCIUM 9.2 mg/dL (8.5-10.1); CO2 27 mmol/L (21-32); GLUCOSE,RANDOM 88 mg/dL (74-106)
[2021-07-03 17:29] LABS: BLOOD UREA NITROGEN 14.3 mg/dL (7-18)
[2021-07-03 17:31] LABS: CREATININE 0.7 mg/dL (0.55-1.3)
[2021-07-03 17:32] LABS: SGOT/AST 13 U/L (15-37); SGPT/ALT 19 U/L (13-61)
[2021-07-03 17:34] LABS: BILIRUBIN,TOTAL 0.8 mg/dL (0.2-1); TOT PROT 7.6 g/dl (6.4-8.2)
[2021-07-03 17:35] LABS: ALK PHOS 75 U/L (45-117)
[2021-07-03 19:46] LABS: EPI CELLS >36 /uL (0-25.1); HYALINE CASTS 2 /uL (0-3.1); PH,URINE 5.5 (5.0-8.0); URINE APPEARANCE CLEAR; URINE BACTERIA 13 /uL (0-1359); URINE BILIRUBIN NEGATIVE (NEGATIVE); URINE COLOR YELLOW; URINE GLUCOSE (UA) NEGATIVE (NEGATIVE); URINE KETONE TRACE (NEGATIVE); URINE LEUK ESTERASE TRACE (NEGATIVE); URINE NITRITE NEGATIVE (NEGATIVE); URINE PROTEIN 1+ (NEGATIVE); URINE RBC 7967 /uL (0-23.9); URINE WBC 156 /uL (0-25.8)
== END 2021-07-03 20:14 | disposition home or self-care (01) ==
LOC: JER 13:02
PROC: 3E033GC Introduction of Other Therapeutic Substance into Peripheral Vein, Percutaneous Approach (ICD-10-PCS; principal; 2021-07-03)
DX: R10.9 Unspecified abdominal pain (principal); N93.9 Abnormal uterine and vaginal bleeding, unspecified; N83.202 Unspecified ovarian cyst, left side
CPT/HCPCS: 36415; 74177-TC; 76817-TC; 80053; 81003; 84702; 85025; 85610; 86850; 86900; 86901; 87086; 93970-TC; 99284-25; Q9967

== ENCOUNTER 2022-06-06 15:33 | Emergency (ER) | payer OTHER ==
[2022-06-06 15:47] VITALS: BP 117/76; PULSE 93; RESP 18; TEMP 97.9; BMI 40.0
[2022-06-06] MEDS ORDERED: IBUPROFEN 400 MG TABLET (FP) PO ONE ×2 (17:02→17:17)
== END 2022-06-06 19:06 | disposition home or self-care (01) ==
LOC: JERFT 15:33
DX: J02.9 Acute pharyngitis, unspecified (principal); Z20.822 Contact with and (suspected) exposure to COVID-19
CPT/HCPCS: 0241U-QW; 87070; 87651; 99283-25

== ENCOUNTER 2022-07-23 14:18 | Emergency (ER) | payer OTHER ==
[2022-07-23 14:29] VITALS: BP 143/68; PULSE 105; RESP 20; TEMP 97.7; BMI 39.5
[2022-07-23] MEDS ORDERED: SODIUM CHLORIDE 0.9% 500 ML INFUS.BAG IV ONE (15:11)
[2022-07-23] MEDS ORDERED: ACETAMINOPHEN 1000 MG/100 ML BAG IVPB ONE (15:11)
[2022-07-23] MEDS ORDERED: ACETAMINOPHEN INJECTION 100 ML IVPB ONE (15:21)
[2022-07-23 16:13] LABS: BASO % 0.9 % (0-2.0); EOS % 1.7 % (0-4.5); HEMOGLOBIN 12.3 GM/dL (10.7-15.3); LYMPH % 28.8 % (8-40); MCH 26.8 pg (25.7-33.7); MCHC 33.1 g/dl (32.0-36.0); MEAN PLT VOLUME 8.2 fl (7.5-11.1); MONO % 6.3 % (3.8-10.2); NEUT % 62.3 % (42.8-82.8); PLATELET COUNT 357 10^3/uL (134-434); RBC 4.57 M/mm3 (3.60-5.2); RDW 13.5 % (11.6-15.6)
[2022-07-23 16:24] LABS: INR 1.05 (0.83-1.09); PROTHROMBIN TIME (PATIENT) 12.2 SEC (9.7-13.0)
[2022-07-23 17:20] LABS: POTASSIUM 4.7 mmol/L (3.5-5.1)
[2022-07-23 17:22] LABS: CALCIUM 9.5 mg/dL (8.5-10.1)
[2022-07-23 17:23] LABS: ALBUMIN 3.9 g/dl (3.4-5.0); BLOOD UREA NITROGEN 14.3 mg/dL (7-18)
[2022-07-23 17:26] LABS: CREATININE 0.7 mg/dL (0.55-1.3)
[2022-07-23 17:27] LABS: TOT PROT 7.7 g/dl (6.4-8.2)
[2022-07-23 17:28] LABS: BILIRUBIN,TOTAL 0.6 mg/dL (0.2-1)
[2022-07-23 18:54] LABS: EPI CELLS >36 /uL (0-25.1); HYALINE CASTS 1 /uL (0-3.1); PH,URINE 5.5 (5.0-8.0); URINE APPEARANCE CLEAR; URINE BACTERIA 704 /uL (0-1359); URINE BILIRUBIN NEGATIVE (NEGATIVE); URINE COLOR YELLOW; URINE GLUCOSE (UA) NEGATIVE (NEGATIVE); URINE KETONE NEGATIVE (NEGATIVE); URINE LEUK ESTERASE TRACE (NEGATIVE); URINE NITRITE NEGATIVE (NEGATIVE); URINE PROTEIN NEGATIVE (NEGATIVE); URINE UROBILINOGEN 0.2 mg/dL (0.2-1.0); URINE WBC 78 /uL (0-25.8)
[2022-07-23 19:40] LABS: URINE RBC 51.8 /uL (0-23.9)
[2022-07-23] MEDS ORDERED: KETOROLAC TROMETHAMINE 30 MG/1 ML VIAL IVPUSH ONE (19:40)
[2022-07-23] MEDS ORDERED: KETOROLAC TROMETHAMINE 30 MG/1 ML VIAL ONE (19:44)
[2022-07-23 19:49] LABS: HCG,QUALITATIVE URINE Negative
== END 2022-07-23 22:15 | disposition home or self-care (01) ==
LOC: JER 14:18
PROC: 3E033NZ Introduction of Analgesics, Hypnotics, Sedatives into Peripheral Vein, Percutaneous Approach (ICD-10-PCS; principal; 2022-07-23)
PROC: 3E033GC Introduction of Other Therapeutic Substance into Peripheral Vein, Percutaneous Approach (ICD-10-PCS; 2022-07-23)
DX: R10.30 Lower abdominal pain, unspecified (principal); R10.13 Epigastric pain; M54.50 Low back pain, unspecified; K29.00 Acute gastritis without bleeding
CPT/HCPCS: 36415; 74177-TC; 80053; 81003; 83690; 84703; 85025; 85610; 86850; 86900; 86901; 87086; 87186; 99285-25; Q9967

== ENCOUNTER 2022-08-01 10:10 | Emergency (ER) | payer OTHER ==
[2022-08-01 10:19] VITALS: BP 105/60; PULSE 88; RESP 17; TEMP 98.9; BMI 39.5
[2022-08-01] MEDS ORDERED: MAG HYDROX/AL HYDROX/SIMETH -MYLANTA- ORAL SUSPENSION PO ONE (12:01)
[2022-08-01] MEDS ORDERED: SUCRALFATE 1 GM/10 ML UNIT DOSE CUPS PO ONE (12:02)
[2022-08-01] MEDS ORDERED: DICYCLOMINE HCL 10 MG/5 ML PO ONE (12:04)
[2022-08-01] MEDS ORDERED: DICYCLOMINE HCL 10 MG CAPSULE ONE (12:23)
[2022-08-01] MEDS ORDERED: MAG HYDROX/AL HYDROX/SIMETH 30 ML UNIT-DOSE CUP ONE (12:23)
[2022-08-01] MEDS ORDERED: SUCRALFATE 1 GM TABLET (FP) ONE (12:23)
[2022-08-01 14:24] LABS: PH,URINE 7.5 (5.0-8.0); URINE APPEARANCE CLEAR; URINE BILIRUBIN NEGATIVE (NEGATIVE); URINE COLOR YELLOW; URINE GLUCOSE (UA) NEGATIVE (NEGATIVE); URINE KETONE NEGATIVE (NEGATIVE); URINE LEUK ESTERASE NEGATIVE (NEGATIVE); URINE NITRITE NEGATIVE (NEGATIVE); URINE PROTEIN NEGATIVE (NEGATIVE); URINE UROBILINOGEN 0.2 mg/dL (0.2-1.0)
== END 2022-08-01 15:02 | disposition home or self-care (01) ==
LOC: JER 10:10
DX: R10.13 Epigastric pain (principal)
CPT/HCPCS: 81003; 87086; 93005; 93010; 99284-25

== ENCOUNTER 2022-08-12 04:05 | Day surgery (SDC) | payer OTHER ==
[2022-08-08 12:49] VITALS: BMI 39.5
[~2022-08-12 04:05] MED LIST changes: +ACETAMINOPHEN 500 MG TABLET (FP) PO PRN; -BUPIVACAINE HCL/PF 0.75% 10 ML VIAL NR ONE; -IOHEXOL 180 MG/1 ML ML IJ ONE
[2022-08-12] MEDS ORDERED: BUPIVACAINE HCL/PF 0.75% 10 ML VIAL ONE (07:46)
[2022-08-12] MEDS ORDERED: LIDOCAINE HCL/PF 1% SDV 5ML VIAL ONE (07:46)
[2022-08-12 11:51] VITALS: RESP 18
[2022-08-12] MEDS ORDERED: BUPIVACAINE HCL/PF 0.75% 10 ML VIAL PNB ONE (12:30)
[2022-08-12] MEDS ORDERED: LIDOCAINE HCL 1% PRESERVATIVE FREE - 30ML VIAL IJ ONE (12:30)
[2022-08-12] MEDS ORDERED: ACETAMINOPHEN 500 MG TABLET (FP) PO ONE (13:15)
[2022-08-12] MEDS ORDERED: ACETAMINOPHEN 500 MG TABLET (FP) ONE (13:16)
[2022-08-12 15:55] VITALS: BP 115/65; PULSE 86; TEMP 98
== END 2022-08-12 16:35 | disposition home or self-care (01) ==
LOC: JASU-SURG 04:05
PROVIDERS: ATTEND Pain Medicine Pain Medicine
PROC: 3E0T3BZ Introduction of Anesthetic Agent into Peripheral Nerves and Plexi, Percutaneous Approach (ICD-10-PCS; principal; 2022-08-12 13:45)
DX: M47.816 Spondylosis without myelopathy or radiculopathy, lumbar region (principal)
CPT/HCPCS: 76000-TC-FY; 81025

== ENCOUNTER 2022-10-31 14:43 | Emergency (ER) | payer OTHER ==
[2022-10-31 14:49] VITALS: BP 114/73; PULSE 98; RESP 18; TEMP 98.3; BMI 39.5
[2022-10-31] MEDS ORDERED: ACETAMINOPHEN 500 MG TABLET (FP) PO ONE (16:17)
[2022-10-31] MEDS ORDERED: ACETAMINOPHEN 500 MG TABLET (FP) ONE (16:40)
[2022-10-31] MEDS ORDERED: FLUCONAZOLE 150 MG TABLET PO ONE ×2 (16:40→16:41)
[2022-10-31 17:46] LABS: PH,URINE 5.5 (5.0-8.0); URINE APPEARANCE CLEAR; URINE BILIRUBIN NEGATIVE (NEGATIVE); URINE COLOR YELLOW; URINE GLUCOSE (UA) NEGATIVE (NEGATIVE); URINE KETONE NEGATIVE (NEGATIVE); URINE LEUK ESTERASE NEGATIVE (NEGATIVE); URINE NITRITE NEGATIVE (NEGATIVE); URINE PROTEIN NEGATIVE (NEGATIVE); URINE UROBILINOGEN 0.2 mg/dL (0.2-1.0)
== END 2022-10-31 18:19 | disposition home or self-care (01) ==
LOC: JERFT 14:43
DX: R30.0 Dysuria (principal); R10.9 Unspecified abdominal pain; R39.15 Urgency of urination; B37.31 Acute candidiasis of vulva and vagina
CPT/HCPCS: 81003; 84703; 87077; 87086; 87186; 99283-25

== ENCOUNTER 2022-12-12 04:13 | Day surgery (SDC) | payer OTHER ==
[2022-12-11 12:19] VITALS: BMI 39.5
[2022-12-12] MEDS ORDERED: DEXAMETHASONE SOD PHOSPHATE 10 MG/1 ML VIAL ONE (07:21)
[2022-12-12] MEDS ORDERED: LIDOCAINE HCL/PF 1% SDV 5ML VIAL ONE (07:21)
[2022-12-12] MEDS ORDERED: ACETAMINOPHEN 500 MG TABLET (FP) PO PRN (10:20)
[2022-12-12 12:03] VITALS: RESP 18
[2022-12-12] MEDS ORDERED: LIDOCAINE HCL 1% PRESERVATIVE FREE - 30ML VIAL IJ ONE ×2 (12:42)
[2022-12-12] MEDS ORDERED: DEXAMETHASONE SOD PHOSPHATE 10 MG/1 ML VIAL IM ONE (12:42)
[2022-12-12] MEDS ORDERED: IOHEXOL 180 MG/1 ML ML IJ ONE (12:43)
[2022-12-12 14:56] VITALS: TEMP 97.9
[2022-12-12 14:58] VITALS: BP 126/78; PULSE 77
== END 2022-12-12 14:40 | disposition home or self-care (01) ==
LOC: JASU-SURG 04:13
PROVIDERS: ATTEND Pain Medicine Pain Medicine
PROC: 3E0R3BZ Introduction of Anesthetic Agent into Spinal Canal, Percutaneous Approach (ICD-10-PCS; 2022-12-12)
PROC: 3E0R33Z Introduction of Anti-inflammatory into Spinal Canal, Percutaneous Approach (ICD-10-PCS; principal; 2022-12-12 12:15)
DX: M54.16 Radiculopathy, lumbar region (principal); M48.061 Spinal stenosis, lumbar region without neurogenic claudication
CPT/HCPCS: 76000-TC-FY; 81025; J1100

== ENCOUNTER 2023-06-16 14:51 | Emergency (ER) | payer OTHER ==
[2023-06-16 15:03] VITALS: BP 110/77; PULSE 94; RESP 18; TEMP 98; BMI 39.5
[2023-06-16] MEDS ORDERED: LIDOCAINE 4% PATCH TP ONE (15:59)
[2023-06-16] MEDS ORDERED: ACETAMINOPHEN INJECTION 100 ML IVPB ONE (15:59)
[2023-06-16] MEDS ORDERED: FAMOTIDINE 20 MG/50 ML IVPB 20 MG/50 ML MG IVPB ONE (15:59)
[2023-06-16] MEDS ORDERED: KETOROLAC TROMETHAMINE 15 MG/ML VIAL ONE (15:59)
[2023-06-16] MEDS: LIDOCAINE 4% PATCH TP ONE (16:16)
[2023-06-16] MEDS: ACETAMINOPHEN 1000 MG/100 ML BAG IVPB ONE (16:17)
[2023-06-16] MEDS: FAMOTIDINE 20 MG/50 ML IVPB 20 MG/50 ML MG IVPB ONE (16:17)
[2023-06-16 16:24] LABS: PH,URINE 7.5 (5.0-8.0); URINE APPEARANCE CLEAR; URINE BILIRUBIN NEGATIVE (NEGATIVE); URINE COLOR YELLOW; URINE GLUCOSE (UA) NEGATIVE (NEGATIVE); URINE KETONE NEGATIVE (NEGATIVE); URINE LEUK ESTERASE NEGATIVE (NEGATIVE); URINE NITRITE NEGATIVE (NEGATIVE); URINE PROTEIN NEGATIVE (NEGATIVE); URINE UROBILINOGEN 0.2 mg/dL (0.2-1.0)
[2023-06-16 16:29] LABS: HCG,QUALITATIVE URINE Negative
[2023-06-16] MEDS: KETOROLAC TROMETHAMINE 15 MG/ML VIAL IVPUSH ONE (16:31)
[2023-06-16 16:40] LABS: BASO % 0.8 % (0-2.0); EOS % 2.6 % (0-4.5); HEMOGLOBIN 12.4 GM/dL (10.7-15.3); LYMPH % 25.7 % (8-40); MCHC 32.7 g/dl (32.0-36.0); MEAN CELL VOLUME 82.5 fl (80-96); MEAN PLT VOLUME 8.2 fl (7.5-11.1); MONO % 6.6 % (3.8-10.2); NEUT % 64.3 % (42.8-82.8); PLATELET COUNT 394 10^3/uL (134-434); RBC 4.61 M/mm3 (3.60-5.2); RDW 13.9 % (11.6-15.6); WHITE BLOOD COUNT 9.1 K/mm3 (4.0-10.0)
[2023-06-16 16:45] LABS: POTASSIUM 4.2 mmol/L (3.5-5.1)
[2023-06-16 16:47] LABS: ALBUMIN 3.8 g/dl (3.4-5.0); CALCIUM 9.5 mg/dL (8.5-10.1)
[2023-06-16 16:48] LABS: BLOOD UREA NITROGEN 11.4 mg/dL (7-18)
[2023-06-16 16:50] LABS: CREATININE 0.6 mg/dL (0.55-1.3)
[2023-06-16 16:52] LABS: BILIRUBIN,TOTAL 0.6 mg/dL (0.2-1); TOT PROT 7.6 g/dl (6.4-8.2)
[2023-06-16] MEDS ORDERED: LIDOCAINE PATCH REMOVAL MC ONE (22:00)
== END 2023-06-16 18:15 | disposition home or self-care (01) ==
LOC: JERFT 14:51
PROC: 3E033GC Introduction of Other Therapeutic Substance into Peripheral Vein, Percutaneous Approach (ICD-10-PCS; principal; 2023-06-16)
PROC: 3E033NZ Introduction of Analgesics, Hypnotics, Sedatives into Peripheral Vein, Percutaneous Approach (ICD-10-PCS; 2023-06-16)
PROC: 3E0333Z Introduction of Anti-inflammatory into Peripheral Vein, Percutaneous Approach (ICD-10-PCS; 2023-06-16)
DX: R52 Pain, unspecified (principal); M54.50 Low back pain, unspecified; R07.89 Other chest pain; R10.13 Epigastric pain; R11.0 Nausea
CPT/HCPCS: 36415; 80053; 81003; 83690; 84484; 84703; 85025; 87077; 87086; 99284-25; J0131

== ENCOUNTER 2023-09-07 16:23 | Emergency (ER) | payer OTHER ==
[2023-09-07 16:35] VITALS: BP 104/71; PULSE 98; RESP 18; TEMP 98.5; BMI 39.0
[2023-09-07] MEDS ORDERED: FAMOTIDINE 20 MG/50 ML IVPB 20 MG/50 ML MG IVPB ONE (17:58)
[2023-09-07] MEDS ORDERED: MAG HYDROX/AL HYDROX/SIMETH 30 ML UNIT-DOSE CUP ONE (17:58)
[2023-09-07] MEDS ORDERED: ACETAMINOPHEN INJECTION 100 ML IVPB ONE (17:58)
[2023-09-07 18:07] LABS: BASO % 1.1 % (0-2.0); EOS % 2.1 % (0-4.5); HEMATOCRIT 35.8 % (32.4-45.2); HEMOGLOBIN 12.2 GM/dL (10.7-15.3); LYMPH % 17.9 % (8-40); MCH 28.5 pg (25.7-33.7); MCHC 34.1 g/dl (32.0-36.0); MEAN CELL VOLUME 83.5 fl (80-96); NEUT % 72.9 % (42.8-82.8); PLATELET COUNT 349 10^3/uL (134-434); RBC 4.29 M/mm3 (3.60-5.2); RDW 13.6 % (11.6-15.6); WHITE BLOOD COUNT 9.6 K/mm3 (4.0-10.0)
[2023-09-07] MEDS: MAG HYDROX/AL HYDROX/SIMETH 30 ML UNIT-DOSE CUP PO ONE (18:17)
[2023-09-07] MEDS: ACETAMINOPHEN 1000 MG/100 ML BAG IVPB ONE (18:17)
[2023-09-07] MEDS: FAMOTIDINE 20 MG/50 ML IVPB 20 MG/50 ML MG IVPB ONE (18:18)
[2023-09-07 18:39] LABS: POTASSIUM 3.8 mmol/L (3.5-5.1)
[2023-09-07 18:40] LABS: CALCIUM 9.3 mg/dL (8.5-10.1)
[2023-09-07 18:41] LABS: ALBUMIN 3.8 g/dl (3.4-5.0); BLOOD UREA NITROGEN 17.6 mg/dL (7-18); MAGNESIUM 1.9 mg/dL (1.8-2.4)
[2023-09-07 18:44] LABS: CREATININE 0.7 mg/dL (0.55-1.3)
[2023-09-07 18:46] LABS: BILIRUBIN,TOTAL 0.9 mg/dL (0.2-1); TOT PROT 7.3 g/dl (6.4-8.2)
[2023-09-07 19:14] LABS: HCG,QUALITATIVE URINE Negative
[2023-09-07 19:19] LABS: PH,URINE 5.5 (5.0-8.0); URINE APPEARANCE CLEAR; URINE BILIRUBIN NEGATIVE (NEGATIVE); URINE COLOR YELLOW; URINE GLUCOSE (UA) NEGATIVE (NEGATIVE); URINE KETONE 2+ (NEGATIVE); URINE LEUK ESTERASE NEGATIVE (NEGATIVE); URINE NITRITE NEGATIVE (NEGATIVE); URINE PROTEIN NEGATIVE (NEGATIVE); URINE UROBILINOGEN 0.2 mg/dL (0.2-1.0)
== END 2023-09-07 20:19 | disposition home or self-care (01) ==
LOC: JERFT 16:23 → JER 16:23 → JERFT 20:19
PROC: 3E033GC Introduction of Other Therapeutic Substance into Peripheral Vein, Percutaneous Approach (ICD-10-PCS; principal; 2023-09-07)
PROC: 3E033NZ Introduction of Analgesics, Hypnotics, Sedatives into Peripheral Vein, Percutaneous Approach (ICD-10-PCS; 2023-09-07)
DX: R07.89 Other chest pain (principal); R42 Dizziness and giddiness; K62.5 Hemorrhage of anus and rectum; R06.02 Shortness of breath; R00.2 Palpitations; R30.0 Dysuria; R35.0 Frequency of micturition
CPT/HCPCS: 36415; 71046-TC-FY; 80053; 81003; 83690; 83735; 84484; 84703; 85025; 87077; 87086; 93005; 93010; 96365; 96375; 99285-25; J0131

== ENCOUNTER 2023-10-09 17:35 | Emergency (ER) | payer OTHER ==
[2023-10-09 17:46] VITALS: BP 116/78; PULSE 96; RESP 18; TEMP 98.5; BMI 38.9
[2023-10-09 18:15] LABS: PH,URINE 7.5 (5.0-8.0); URINE APPEARANCE CLOUDY; URINE BILIRUBIN NEGATIVE (NEGATIVE); URINE COLOR YELLOW; URINE GLUCOSE (UA) NEGATIVE (NEGATIVE); URINE KETONE TRACE (NEGATIVE); URINE LEUK ESTERASE NEGATIVE (NEGATIVE); URINE NITRITE NEGATIVE (NEGATIVE); URINE PROTEIN NEGATIVE (NEGATIVE)
[2023-10-09 18:18] LABS: HCG,QUALITATIVE URINE Negative
[2023-10-09] MEDS: ACETAMINOPHEN 500 MG TABLET (FP) PO ONE (18:59)
[2023-10-09] MEDS ORDERED: ACETAMINOPHEN 500 MG TABLET (FP) ONE (19:01)
== END 2023-10-09 20:38 | disposition home or self-care (01) ==
LOC: JER 17:35
DX: M25.572 Pain in left ankle and joints of left foot (principal); R30.0 Dysuria; X50.1XXA Overexertion from prolonged static or awkward postures, initial encounter
CPT/HCPCS: 73610-TC-LT-FY; 73630-TC-LT; 81003; 84703; 87086; 87186; 99284-25